=== PATIENT | female | born 1975 | race Caucasian/White ===

== ENCOUNTER 2017-10-20 10:56 | Observation (INO) ==
[2017-10-20] MEDS ORDERED: 0.9 % Sodium Chloride 1,000 ML IVC ONE (11:04)
[2017-10-20] MEDS ORDERED: Pantoprazole 40 MG VIAL IVP ONE (11:04)
[2017-10-20] MEDS ORDERED: Ondansetron 4 MG/2 ML VIAL IVP ONE (11:04)
--- NOTE | 2017-10-20 11:29 | Emergency Department Note ---
Disposition Clinical Impression: Near syncope Disposition: Still a Patient Referrals: Benjy Cowan MD [Primary Care Provider] - General Adult HPI - General Chief complaint: ED Syncope Stated complaint: near syncope Time Seen by Provider: 10/20/17 11:00 - History of Present Illness Pain Scale: 7 - Related Data Home Medications Medication Instructions Recorded Confirmed BuPROPion XL (24 HR) [Wellbutrin 150 mg PO DAILY 10/04/16 10/21/16 Xl] Cholecalciferol (D-3) [Vitamin D] 5,000 unit PO DAILY 10/04/16 10/21/16 Cyclosporine [Restasis] 1 drop OP BID 10/04/16 10/21/16 Diphenoxylate/Atropine [Lomotil 1 tab PO BID 10/04/16 10/21/16 2.5 mg/0.025 mg] Escitalopram [Lexapro] 20 mg PO DAILY 10/04/16 10/21/16 Ferrous Gluconate 240 mg PO DAILY 10/04/16 10/21/16 Fexofenadine HCl [Allergy Relief] 180 mg PO DAILY 10/04/16 10/21/16 L. Rhamnosus GG/Inulin [Culturelle 1 cap PO DAILY 10/04/16 10/21/16 Capsule] LORazepam [Ativan] 1 mg PO BID 10/04/16 10/21/16 Montelukast [Singulair] 10 mg PO DAILY 10/04/16 10/21/16 Omeprazole [PriLOSEC] 20 mg PO DAILY 10/04/16 10/21/16 Ondansetron HCl [Zofran] 4 - 8 mg PO Q8H PRN 10/04/16 10/21/16 Promethazine HCl 12.5 - 25 mg PO Q8H PRN 10/04/16 10/21/16 Ziprasidone HCl [Geodon] 20 mg PO BID 10/04/16 10/21/16 Previous Rx's Medication Instructions Recorded OxyCODONE/APAP 10/325 [Percocet 1 each PO Q6HR PRN #36 tablet 10/21/16 10/325 MG] Dicyclomine [Bentyl] 10 mg PO QID PRN #30 capsule 08/01/17 Sucralfate [Carafate] 1 gm PO QID 10 Days #1 bottle 08/28/17 Ondansetron ODT [Zofran ODT] 8 mg SL Q6HR PRN #40 tab.rapdis 10/16/17 Allergies Allergy/AdvReac Type Severity Reaction Status Date / Time Cyclobenzaprine AdvReac See Verified 10/16/17 00:08 Comments eszopiclone [From Lunesta] AdvReac See Verified 10/16/17 00:08 Comments mirtazapine AdvReac See Verified 10/16/17 00:08 Comments Zolpidem [From Ambien] AdvReac Hallucinati Verified 10/16/17 00:08 ng Past Medical History - Past Medical History Medical history: Reports: GERD, migraine Psychiatric history: Reports: anxiety, depression 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 CHIP BIN OPERATOR history - Social History Smoking Status: Never smoker Smokeless Tobacco Status: No Alcohol use: Reports: none Drug use: Reports: none Physical Exam - General General appearance: alert, in no apparent distress Course Vital Signs Temperature 97.6 F 10/20/17 10:58 Pulse Rate 82 10/20/17 10:58 Respiratory Rate 17 10/20/17 10:58 Blood Pressure 124/83 10/20/17 10:58 O2 Sat by Pulse Oximetry 100 10/20/17 10:58 Temperature 97.6 F 10/20/17 10:58 Pulse Rate 82 10/20/17 10:58 Respiratory Rate 17 10/20/17 10:58 Blood Pressure 124/83 10/20/17 10:58 O2 Sat by Pulse Oximetry 100 10/20/17 10:58 Oxygen Delivery Oxygen Delivery Room Air Attestation Statement - Attestation Attestation: I examined this patient and my medical decision-making was reviewed with the Resident Physician. I agree with the documented findings, disposition and treatment plan as described except to the extent set forth below. 42 year old lance prsnet to the ED with complaints of near syncope while showeirng and is currently being evlauted for chronic abminal pain per Dr. Miller. Mother at bedside has been demanding and states that she needs to be admitted per reccs of Dr. Miller. We will start IVf and obtain labs secondary to a history of hypokalemia in addiitiont to inabiltiyt to tolerate PO per patient. WE will also consutl with Dr. Miller before admission tot [facility]
--- NOTE | 2017-10-20 11:34 | Emergency Department Note ---
Disposition Clinical Impression: Near syncope, Weight loss, Hypokalemia Abdominal pain Qualifiers: Abdominal location: epigastric Qualified Code(s): R10.13 - Epigastric pain Intractable nausea and vomiting Qualifiers: Vomiting type: unspecified Qualified Code(s): R11.2 - Nausea with vomiting, unspecified Disposition: Admitted As Inpatient Condition: Fair Time of Disposition: 14:09 General Adult HPI - General Chief complaint: ED Syncope Stated complaint: near syncope Time Seen by Provider: 10/20/17 11:00 Source: EMS Nursing Notes Reviewed: Yes Vital Signs Reviewed: Yes - History of Present Illness HPI Narrative: Patient is a 42-year-old female who presents to [facility] ED with a chief complaint of near syncopal episode today and abdominal pain. Patient states she has had a 3 week history now of persistent abdominal pains that come on whenever she eats. She is to the point where she has lost 25 pounds over the last 3 weeks and has severe pain when she tries to eat or drink anything. States she is just down to drinking water. Everything else irritates her. She is unable to take any of her medications including Protonix or Carafate. Patient has been following with the welt insole channeler Dr. Miller who has her scheduled for picc line placement today and an EGD tomorrow. Onset (ago): week(s) (3) Location: abdomen Radiation: non-radiation Pain Severity: moderate Pain Scale: 7 Quality: aching Consistency: intermittent Improves with: nothing Worsens with: eating Associated symptoms: Reports: loss of appetite, nausea/vomiting, weakness. Denies: chest pain, fever/chills Treatments Prior to Arrival: none - Related Data Home Medications Medication Instructions Recorded Confirmed BuPROPion XL (24 HR) [Wellbutrin 150 mg PO DAILY 10/04/16 10/21/16 Xl] Cholecalciferol (D-3) [Vitamin D] 5,000 unit PO DAILY 10/04/16 10/21/16 Cyclosporine [Restasis] 1 drop OP BID 10/04/16 10/21/16 Escitalopram [Lexapro] 20 mg PO DAILY 10/04/16 10/21/16 Ferrous Gluconate 240 mg PO DAILY 10/04/16 10/21/16 Fexofenadine HCl [Allergy Relief] 180 mg PO DAILY 10/04/16 10/21/16 L. Rhamnosus GG/Inulin [Culturelle 1 cap PO DAILY 10/04/16 10/21/16 Capsule] LORazepam [Ativan] 1 mg PO BID 10/04/16 10/21/16 Montelukast [Singulair] 10 mg PO DAILY 10/04/16 10/21/16 Omeprazole [PriLOSEC] 20 mg PO DAILY 10/04/16 10/21/16 Ziprasidone HCl [Geodon] 20 mg PO BID 10/04/16 10/21/16 Buspirone HCl [Buspar] 15 mg PO BID 10/20/17 10/20/17 Potassium Chloride [K-Tab ER] 10 meq PO BID 10/20/17 10/20/17 SUMAtriptan Succinate [Imitrex] 6 mg SQ DAILY PRN 10/20/17 10/20/17 Previous Rx's Medication Instructions Recorded Dicyclomine [Bentyl] 10 mg PO QID PRN #30 capsule 08/01/17 Sucralfate [Carafate] 1 gm PO QID 10 Days #1 bottle 08/28/17 Ondansetron ODT [Zofran ODT] 8 mg SL Q6HR PRN #40 tab.rapdis 10/16/17 Allergies Allergy/AdvReac Type Severity Reaction Status Date / Time Cyclobenzaprine AdvReac See Verified 10/20/17 13:41 Comments eszopiclone [From Lunesta] AdvReac See Verified 10/20/17 13:41 Comments mirtazapine AdvReac See Verified 10/20/17 13:41 Comments Zolpidem [From Ambien] AdvReac Hallucinati Verified 10/20/17 13:41 ng All systems ED: reviewed and negative except as stated. Past Medical History - Past Medical History Attestation: Yes The following information was validated with the patient. Source: patient Medical history: Reports: GERD, migraine Psychiatric history: Reports: anxiety, depression COMMISSIONER OF CONCILIATION history: Reports: no COMMISSIONER OF CONCILIATION history - Social History Smoking Status: Never smoker Smokeless Tobacco Status: No Alcohol use: Reports: none Drug use: Reports: none Physical Exam - General Limitations: no limitations General appearance: alert, in no apparent distress - Head Head exam: atraumatic, normocephalic, normal inspection - Eye Eye exam: Present: normal appearance - ENT ENT exam: normal exam - Neck Neck exam: Present: normal inspection - Chest Chest inspection: Present: normal inspection, symmetric chest wall rise - Respiratory Respiratory exam: Present: normal lung sounds bilaterally - Cardiovascular Cardiovascular exam: Present: regular rate, normal rhythm, normal heart sounds - Abdominal Exam Abdominal exam: Present: soft, tenderness, normal bowel sounds Abdominal tenderness: Present: epigastrium, moderate - Extremities Exam Extremities exam: Present: normal inspection, full ROM. Absent: tenderness, pedal edema - Back Exam Back exam: Present: normal inspection, full ROM. Absent: tenderness - Neurological Exam Neurological exam: Present: alert, oriented X3 - Psychiatric Psychiatric exam: Present: normal affect, normal mood - Skin Skin exam: Present: warm, dry, intact, normal color Course Course Narrative: Patient seen and examined. Persistent intermittent abdominal pain especially with eating. She has been evaluated by gastroenterology. Patient and family report 25 pound weight loss over the last 3 weeks. Abdominal labs ordered. We will hold off on CT scanning since she just had this done a few days ago. We will touch base with gastroenterology within results are back. - Reevaluation(s) Reevaluation #1: Labwork shows mild hypokalemia with a potassium of 3.2. Patient has been unable to tolerate oral pills of any sort. We will give her IV fluids and 40 mEq of IV potassium. I discussed with Dr. Miller who recommends that the patient be admitted for further workup at this time. States she may need a CT of the head to rule out any PROPAGATION MANAGER causes of her symptoms. I discussed with hospitalist who has accepted patient for admission. She recommends getting a magnesium level as well as having her on maintenance IV fluids normal saline at 150 mL per hour. Time: 14:06 Vital Signs Temperature 97.6 F 10/20/17 10:58 Pulse Rate 82 10/20/17 10:58 Respiratory Rate 17 10/20/17 10:58 Blood Pressure 124/83 10/20/17 10:58 O2 Sat by Pulse Oximetry 100 10/20/17 10:58 Temperature 97.6 F 10/20/17 10:58 Pulse Rate 92 10/20/17 12:54 Respiratory Rate 14 10/20/17 12:54 Blood Pressure 126/82 10/20/17 12:54 O2 Sat by Pulse Oximetry 100 10/20/17 12:54 Oxygen Delivery Oxygen Delivery Room Air Medical Decision Making - Medical Records Medical records reviewed: Yes I reviewed the patient's medical records. - Lab Data Lab results reviewed: Yes I reviewed the patient's lab results. Result diagrams: 10/20/17 11:27 10/20/17 11:27 Lab Results 10/20/17 10/20/17 10/20/17 Range/Units 11:27 11:27 12:40 WBC 8.9 (4.3-11.1) K/mcL RBC 5.29 H (3.82-4.97) M/mcL Hgb 16.0 H (11.5-15.4) g/dL Hct 44.5 (35.3-44.9) % MCV 84.1 (83.0-100.0) fL MCH 30.2 (28.0-33.3) pg MCHC 36.0 H (31.6-35.5) g/dL RDW 13.1 (11.5-14.5) % Plt Count 356 (140-400) K/mcL MPV 9.4 (9.4-12.4) fL Immature Gran % 0.4 (0-4) % Seg Neutrophils % 74.7 % Lymphocytes % 14.4 % Monocytes % 8.6 % Eosinophils % 1.7 % Basophils % 0.2 % Neutrophils # 6.7 (1.6-8.9) K/mcL Lymphocytes # 1.3 (0.6-4.6) K/mcL Monocytes # 0.8 (0.0-1.3) K/mcL Eosinophils # 0.2 (0.0-0.6) K/mcL Basophils # 0.0 (0.0-0.2) K/mcL Sodium 140 (136-145) mEq/L Potassium 3.2 L (3.5-5.1) mEq/L Chloride 103 (98-107) mEq/L Carbon Dioxide 17 L (23-29) mEq/L BUN 6 (6-20) mg/dL Creatinine 0.84 (0.60-1.20) mg/dL Est GFR ( Amer) > 60 (> 60) Est GFR (Non-Af Amer) > 60 (> 60) BUN/Creatinine Ratio 7 (6-26) Glucose 78 (70-105) mg/dL Calculated Osmolality 286 (280-300) Calcium 9.6 (8.6-10.3) mg/dL Magnesium 2.1 (1.6-2.6) mg/dL Total Bilirubin 0.5 (0.3-1.0) mg/dL Direct Bilirubin 0.1 (0.0-0.2) mg/dL Indirect Bilirubin 0.4 (0.0-1.2) mg/dL AST 21 (13-39) Units/L ALT 20 (7-52) Units/L Alkaline Phosphatase 72 (34-104) Units/L Serum Total Protein 7.5 (6.4-8.9) g/dL Albumin 4.6 (3.5-5.7) g/dL Globulin 2.9 (2.4-3.5) g/dL Albumin/Globulin Ratio 1.6 (1.1-2.2) Lipase 87 H (11-82) Units/L Urine Color Yellow (Yellow) Urine Clarity Clear (Clear) Urine pH 5.5 (5.0-8.0) pH Units Ur Specific [place] 1.012 (1.010-1.025) Urine Protein Negative (Neg-Trace) mg/dL Urine Glucose (UA) Normal (Normal) mg/dL Urine Ketones 80 H (Negative) mg/dL Urine Blood Small H (Negative) Urine Nitrite Negative (Negative) Urine Bilirubin Negative (Negative) Urine Urobilinogen Normal (Normal) mg/dL Ur Leukocyte Esterase Negative (Negative) Urine Microscopic RBC 0-3 (0-3) per hpf Urine Microscopic WBC 3-5 H (0-3) per hpf Ur Squamous Epith Cells Many H (None-Few) per lpf Urine Bacteria Few (None-Few) per hpf Hyaline Casts None Seen (None-Few) per lpf Ur Culture Indicated? NO (NO) - Radiology Data Radiology results reviewed: Yes I reviewed the patient's radiology results.
[2017-10-20 11:44] LABS: Basophils % 0.2 %; Eosinophils # 0.2 K/mcL (0.0-0.6); Eosinophils % 1.7 %; Hematocrit 44.5 % (35.3-44.9); Immature Granulocytes % 0.4 % (0-4); Lymphocytes # 1.3 K/mcL (0.6-4.6); Lymphocytes % 14.4 %; Mean Corpuscular Hemoglobin 30.2 pg (28.0-33.3); Mean Corpuscular Volume 84.1 fL (83.0-100.0); Mean Platelet Volume 9.4 fL (9.4-12.4); Monocytes # 0.8 K/mcL (0.0-1.3); Monocytes % 8.6 %; Neutrophils # 6.7 K/mcL (1.6-8.9); Platelet Count 356 K/mcL (140-400); Red Blood Count 5.29 M/mcL (3.82-4.97); Red Cell Distribution Width 13.1 % (11.5-14.5); Segmented Neutrophils % 74.7 %
[2017-10-20 11:59] LABS: Alanine Aminotransferase 20 Units/L (7-52); Albumin 4.6 g/dL (3.5-5.7); Albumin/Globulin Ratio 1.6 (1.1-2.2); Alkaline Phosphatase 72 Units/L (34-104); Aspartate Amino Transferase 21 Units/L (13-39); BUN/Creatinine Ratio 7 (6-26); Bilirubin,Direct 0.1 mg/dL (0.0-0.2); Bilirubin,Indirect 0.4 mg/dL (0.0-1.2); Bilirubin,Total 0.5 mg/dL (0.3-1.0); Blood Urea Nitrogen 6 mg/dL (6-20); Calcium 9.6 mg/dL (8.6-10.3); Carbon Dioxide 17 mEq/L (23-29); Chloride 103 mEq/L (98-107); Globulin 2.9 g/dL (2.4-3.5); Glucose 78 mg/dL (70-105); Lipase 87 Units/L (11-82); Osmolality,Calculated 286 (280-300); Potassium 3.2 mEq/L (3.5-5.1); Sodium 140 mEq/L (136-145); Total Protein 7.5 g/dL (6.4-8.9); eGFR For African Americans > 60 (> 60); eGFR For Non-African Americans > 60 (> 60)
[2017-10-20 12:54] LABS: Bilirubin,Urine Negative (Negative); Blood,Urine Small (Negative); Clarity,Urine Clear (Clear); Color,Urine Yellow (Yellow); Glucose,Urine (UA) Normal (Normal); Ketones,Urine 80 mg/dL (Negative); Leukocyte Esterase,Urine Negative (Negative); Nitrite,Urine Negative (Negative); PH,Urine 5.5 pH Units (5.0-8.0); Protein,Urine Negative (Neg-Trace); Specific Gravity,Urine 1.012 (1.010-1.025); Urobilinogen,Urine Normal (Normal)
[2017-10-20 12:56] LABS: Bacteria,Urine Few per hpf (None-Few); Hyaline Casts,Urine None Seen per lpf (None-Few); RBC,Urine 0-3 per hpf (0-3); Squamous Epithelial Cell,Urine Many per lpf (None-Few)
[2017-10-20 13:28] LABS: Magnesium 2.1 mg/dL (1.6-2.6)
[2017-10-20] MEDS ORDERED: Naloxone 0.4 MG/ML INJ IVP PRN (14:42)
[2017-10-20] MEDS: 0.9 % Sodium Chloride 1,000 ML IVC SCH ×2 (14:43→21:33)
--- NOTE | 2017-10-20 14:52 | Internal Med History&Physical ---
Date of Encounter: 10/20/17 Time of Encounter: 14:49 Internal Medicine - H&P: HPI Chief complaint: Near syncope Admitted From: Home Plans for Post Hospital Care: Home History of present illness: Ms. Briggs is a 42 year old female that came to the ED after almost falling in the shower. The patient has a very extensive history of illness that began last March. She has a hx of IBS, vitamin D deficiency, and hypokalemia. The patient indicated that she had her gallbladder removed about 1 year ago and then around March she began to have symptoms involving IBS and nausea. She indicated that Dr. Miller placed her on omeprazole abdomen carafate. The patient stated that about 3 months ago she began to have nausea and vomiting that has caused her to essentially lose 25 pounds and have inadequate nutrition and dehydration. The patient currently states that she was told that an picc line would be placed soon for IV hydration since she is not able to take adequate intake. The patient is hoping to have parenteral nutrition. She indicated that the medications for her nausea and vomiting has been ineffective at home. She is scheduled to have EGD in am and GI is consulted for that while inpatient. She has had several visits to the ED and her abdomen was scanned on Tuesday. The scan showed a 2 mm left kidney that was non-obstructing and w/o hydronephrosis. The patient has mental health history and indicated that she stopped taking most of her psych meds on September 28, as a result of her n+V. She indicated that she does not want any of her home medications that are po right now. . Today the patient almost fell while in the shower and came in for hydration and she stated for Dr. Miller to perform EGD in am. Lipase is 87, k was 3.2 and replaced by the ED. Past Med Surg Social Fam HX - Past Medical History Medical history: GERD, migraine Psychiatric history: anxiety, depression - Social History Smoking Status: Never smoker Smokeless Tobacco Status: No Alcohol use: none Drug use: none - Family History Grandfather Living Status: Hx Family Cardiac Disorders: Yes Internal Medicine - H&P: Meds BuPROPion XL (24 HR) [Wellbutrin Xl] 150 mg PO DAILY 10/04/16 [History] Cholecalciferol (D-3) [Vitamin D] 5,000 unit PO DAILY 10/04/16 [History] Cyclosporine [Restasis] 1 drop OP BID 10/04/16 [History] Escitalopram [Lexapro] 20 mg PO DAILY 10/04/16 [History] Ferrous Gluconate 240 mg PO DAILY 10/04/16 [History] Fexofenadine HCl [Allergy Relief] 180 mg PO DAILY 10/04/16 [History] L. Rhamnosus GG/Inulin [Culturelle Capsule] 1 cap PO DAILY 10/04/16 [History] LORazepam [Ativan] 1 mg PO BID 10/04/16 [History] Montelukast [Singulair] 10 mg PO DAILY 10/04/16 [History] Omeprazole [PriLOSEC] 20 mg PO DAILY 10/04/16 [History] Ziprasidone HCl [Geodon] 20 mg PO BID 10/04/16 [History] Dicyclomine [Bentyl] 10 mg PO QID PRN #30 capsule 08/01/17 [Rx] Sucralfate [Carafate] 1 gm PO QID 10 Days #1 bottle 08/28/17 [Rx] Ondansetron ODT [Zofran ODT] 8 mg SL Q6HR PRN #40 tab.rapdis 10/16/17 [Rx] Buspirone HCl [Buspar] 15 mg PO BID 10/20/17 [History] Potassium Chloride [K-Tab ER] 10 meq PO BID 10/20/17 [History] SUMAtriptan Succinate [Imitrex] 6 mg SQ DAILY PRN 10/20/17 [History] 3 Allergy/AdvReac Type Severity Reaction Status Date / Time Cyclobenzaprine AdvReac See Verified 10/20/17 13:41 Comments eszopiclone [From Lunesta] AdvReac See Verified 10/20/17 13:41 Comments mirtazapine AdvReac See Verified 10/20/17 13:41 Comments Zolpidem [From Ambien] AdvReac Hallucinati Verified 10/20/17 13:41 ng All Systems PM: A 10-system review of systems was performed and is negative for pertinent findings except as documented above in the HPI. - Constitutional Constitutional: weight loss (Severe 25 pounds) - EENT Eyes: no change in vision, no discharge, no pain, no photophobia Ears: no ear discharge, no ear pain, no tinnitus Nose, mouth and throat: no dysphagia, no nasal discharge, no neck pain, no sore throat - Cardiovascular Cardiovascular ROS IM: lightheadedness, syncope, no chest pain, no diaphoresis, no dyspnea, no palpitations - Respiratory Respiratory: no cough, no dyspnea, no wheezing, no excessive phlegm production - Gastrointestinal Gastrointestinal: abdominal pain, change in bowel habits, diarrhea, loose stools , nausea, vomiting, no hematemesis, no hematochezia, no melena - Genitourinary Genitourinary: no change in urinary stream, no dysuria, no flank pain, no hematuria - Musculoskeletal Musculoskeletal ROS IM: no numbness, no tingling - Integumentary Integumentary IM: no rash, no unusual bruising - Neurological Neurological ROS: no confusion, no convulsions, no focal weakness, no numbness, no tingling, no tremor(s) - Psychiatric Psychiatric: anxiety (Patient indicated that she ) - Hematologic/Lymphatic Hematologic/Lymphatic: no easy bruising - Constitutional Vitals: Temp Pulse Resp BP Pulse Ox 97.8 F 82 14 132/81 98 10/20/17 14:40 10/20/17 14:40 10/20/17 14:40 10/20/17 14:40 10/20/17 14:40 General appearance: Present: mild distress, A&O X 3, loss of weight, answers questions appropriately - Head Head exam: Present: atraumatic, normocephalic - Eye Eye exam: Present: PERRL, conjuntiva pink, sclera anicteric Pupils: Present: PERRL - Neck Neck exam general surgery: Present: supple, trachea midline. Absent: lymphadenopathy - Respiratory Respiratory exam: Present: CTAB. Absent: accessory muscle use, rales, rhonchi, wheezes - Cardiovascular Cardiovascular exam: Present: RRR, +S1, +S2. Absent: diastolic murmur, gallop, rubs, systolic murmur - GI/Abdominal GI/Abdominal exam: Present: normal bowel sounds, soft, no peritoneal signs. Absent: distended, tenderness - Extremities Exam Extremities exam: Present: warm, radial pulses palpable and symmetrical. Absent : calf tenderness, cyanotic, pedal edema - Neurological Exam Neurological exam: Present: CN II-XII intact, oriented X3, no focal deficits. Absent: pronater drift, facial droop, speech deficit - Skin Skin exam: Present: dry, intact Internal Med - H&P Results - Labs CBC & Chem 7: 10/20/17 11:27 10/20/17 11:27 - Assessment and plan (1) Near syncope Current Visit: Yes Status: Acute Assessment and plan: Will get orthostatic Bp's, IVF's, and cardiac monitoring (2) Intractable nausea and vomiting Current Visit: Yes Status: Acute Assessment and plan: Patient requested to have med other than zofran for nausea, states ineffective. Started on phenergan iv prn. Will keep hydrated with IVF's. Qualifiers: Vomiting type: unspecified Qualified Code(s): R11.2 - Nausea with vomiting , unspecified (3) Abdominal pain Current Visit: Yes Status: Acute Assessment and plan: Patient here per GI request. Scheduled to have EGD in am. Patient will be npo after midnight for procedure. Qualifiers: Abdominal location: generalized Qualified Code(s): R10.84 - Generalized abdominal pain (4) Hypokalemia Current Visit: Yes Status: Acute Assessment and plan: Monitor serum potassium daily. Continue IVF's. Cardiac monitoring (5) Weight loss Current Visit: Yes Status: Acute Assessment and plan: Will consult nutrition regarding weightloss. Patient requesting parenteral nutrition. Pheneragn iv prn or nausea. - Time Spent With Patient Total time spent is greater than 50% in coordination of care (as documented) at patient's floor/unit and/or counseling patient:
[2017-10-20] MEDS: *HR* Promethazine 25 MG/ML VIAL IVP PRN (17:35)
[2017-10-21] MEDS: 0.9 % Sodium Chloride 1,000 ML IVC SCH (04:39)
[2017-10-21 05:47] LABS: Mean Corpuscular HGB Conc 35.5 g/dL (31.6-35.5); Mean Corpuscular Volume 84.4 fL (83.0-100.0); Mean Platelet Volume 9.4 fL (9.4-12.4); Platelet Count 306 K/mcL (140-400); Red Cell Distribution Width 13.2 % (11.5-14.5)
[2017-10-21 06:04] LABS: Hemoglobin 13.5 g/dL (11.5-15.4)
[2017-10-21 06:07] LABS: BUN/Creatinine Ratio 5 (6-26); Blood Urea Nitrogen 3 mg/dL (6-20); Calcium 8.3 mg/dL (8.6-10.3); Carbon Dioxide 15 mEq/L (23-29); Chloride 113 mEq/L (98-107); Glucose 61 mg/dL (70-105); Magnesium 1.7 mg/dL (1.6-2.6); Osmolality,Calculated 284 (280-300); Potassium 3.1 mEq/L (3.5-5.1); Sodium 140 mEq/L (136-145); eGFR For African Americans > 60 (> 60); eGFR For Non-African Americans > 60 (> 60)
[2017-10-21] MEDS ORDERED: *HR* Propofol 200 MG/20 ML VIAL IVP ONE ×2 (07:56→08:08)
--- NOTE | 2017-10-21 08:25 | Anesthesia Evaluation PreOp ---
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 Rhamnosus GG/Inulin [Culturelle Capsule] 1 cap PO DAILY 10/04/16 [History] LORazepam [Ativan] 1 mg PO BID 10/04/16 [History] Montelukast [Singulair] 10 mg PO DAILY 10/04/16 [History] Omeprazole [PriLOSEC] 20 mg PO DAILY 10/04/16 [History] Ziprasidone HCl [Geodon] 20 mg PO BID 10/04/16 [History] Dicyclomine [Bentyl] 10 mg PO QID PRN #30 capsule 08/01/17 [Rx] Sucralfate [Carafate] 1 gm PO QID 10 Days #1 bottle 08/28/17 [Rx] Ondansetron ODT [Zofran ODT] 8 mg SL Q6HR PRN #40 tab.rapdis 10/16/17 [Rx] Buspirone HCl [Buspar] 15 mg PO BID 10/20/17 [History] Potassium Chloride [K-Tab ER] 10 meq PO BID 10/20/17 [History] SUMAtriptan Succinate [Imitrex] 6 mg SQ DAILY PRN 10/20/17 [History] 3 Allergy/AdvReac Type Severity Reaction Status Date / Time Cyclobenzaprine AdvReac See Verified 10/20/17 13:41 Comments eszopiclone [From Lunesta] AdvReac See Verified 10/20/17 13:41 Comments mirtazapine AdvReac See Verified 10/20/17 13:41 Comments Zolpidem [From Ambien] AdvReac Hallucinati Verified 10/20/17 13:41 ng - Meds/Allergy Pre-op Review Medications Reviewed: Yes Allergies Reviewed: Yes Beta Blockers on Current Med List: No Anesthesia Results - Labs 10/21/17 05:23 10/21/17 05:23 Anesthesia Exam Selected Entries 10/21/17 07:40 Temperature 98.5 F Pulse Rate 72 Respiratory Rate 16 Blood Pressure 138/86 O2 Sat by Pulse Oximetry 100 Weight: 75.5kg NPO (# of Hours): 8 - HEENT Pupil (Motor): EOMI Mallampati: II Teeth: Normal Oral Opening: Greater than 3 - BUTTONHOLE MAKER HAND LOC: Oriented BUTTONHOLE MAKER HAND Motor: Normal RUE, Normal LUE, Normal RLE, Normal LLE, Normal Face BUTTONHOLE MAKER HAND Sensory: Normal: RUE, LUE, RLE, LLE, Face - Cardiac Rhythm: Regular Murmur: None - Pulmonary Breath Sounds: bilateral Clear Respiratory Effort: Symmetrical Anesthesia Assess/Plan ASA Score: 2 Modified Donna Scale for Level of Consciousness: Cooperative, oriented, and tranquil Anesthetic Plan: MAC Monitoring Plan: Standard Monitors Recovery Plan: Other (agrees to MAC)
--- NOTE | 2017-10-21 09:26 | Anesthesia Evaluation Post Op ---
Date of Encounter: 10/21/17 Time of Encounter: 09:25 - Vital Signs Vital Signs: BP 112/76 P 80 r 14 spo2 100 - Lungs Lungs: Clear Ascult./Percussion - Airway Airway: Non-obstructed - Cardiovascular Regular Rate - Mental Status Mental Status: Alert & Oriented, Answers Appropriately - Pain Pain Scale: 0 Pain Scale used: Numeric (1 - 10) - Nausea Vomiting Nausea Vomiting: Not Present - Hydration Hydration: NPO, Has not voided - Discharge PostOp Status: Transfer Patient to floor
--- NOTE | 2017-10-21 09:29 | Gastroenterology Consult Note ---
<Anne Hale - Last Filed: 10/21/17 10:05> Date of Encounter: 10/21/17 Time of Encounter: 09:45 - Assessment and plan (1) Intractable nausea and vomiting Status: Acute Assessment and plan: Pt has longstanding history of nausea and vomiting. EGD 10/[address] abdomen was negative. She has serum cortisol level drawn as an outpatient. Will proceed with EGD today. She needs MRI brain to rule out mass lesion as the cause for persistant nausea. Qualifiers: Vomiting type: unspecified Qualified Code(s): R11.2 - Nausea with vomiting , unspecified (2) Abdominal pain Status: Acute Assessment and plan: EGD today, CT was normal has been treated with PPI and carafate. Qualifiers: Abdominal location: generalized Qualified Code(s): R10.84 - Generalized abdominal pain (3) Weight loss Status: Acute Assessment and plan: Pt to have PICc line inserted and started on parenteral nutrition. - Time Spent With Patient Total time spent is greater than 50% in coordination of care (as documented) at patient's floor/unit and/or counseling patient: GI History of Present Illness - Data of Consult Patient: known to practice within the last 3 years Consult date: 10/21/17 Requesting Physician: Jackeline Camejo - Consult Narrative Reason for consult: intractable nausea and vomiting History of present illness: Ms. Briggs is a 42 year old female that came to the ED after almost falling in the shower. The has had nausea and vomiting since March 2017 following cholecystectomy. She has a hx of IBS, vitamin D deficiency, and hypokalemia. She was started on omeprazole and carafate as well as zofran and phenergan for nausea. She had recent hypokalemia on outpatient labs and was sent po replacement but was unable to take due to nausea and diarrhea. She has been seen in the ER multiple times since August 2017. She also has lost 22 pounds in the past [address] abdomen showed a 2 mm left kidney stone that was non- obstructing and w/o hydronephrosis. The patient has mental health history and indicated that she stopped taking most of her psych meds on September 28, as a result of her n+V. She indicated that she does not want any of her home medications that are po right now. Dr Miller had ordered for the patient to have a picc line placed for parenteral nutrition yesterday but she had a near syncopal episode in the shower and presented to the ER.Lipase is 87, k was 3.2 and replaced by the ED EGD/colonoscopy 10/04/16- gastritis. NSAIDS: none Past Med Surg Social Fam HX - Past Medical History Medical history: GERD, migraine Psychiatric history: anxiety, depression - Past Surgical History Surgical History: cholecystectomy - Social History Smoking Status: Never smoker Smokeless Tobacco Status: No Alcohol use: none Drug use: none - Family History Grandfather Living Status: Hx Family Cardiac Disorders: Yes Review of Systems: GI: as per [facility]: denies fever, has some chills EYES: denies yellow discoloration ENT: denies pain with swallowing or difficulty swallowing CARDIO: denies chest pain, palpitations RESP: No Shortness of breath with exertion : denies change in color of urine NEURO: weakness HEME: Denies any bruising MS: denies joint pain, joint swelling or back pain. DERM: denies rash or itching PSYCH: history of anxiety and depression - Constitutional Vitals: Temp Pulse Resp BP Pulse Ox 98.5 F 72 16 138/86 100 10/21/17 07:40 10/21/17 07:40 10/21/17 07:40 10/21/17 07:40 10/21/17 07:40 Exam: CONSTITUTIONAL:~alert, no acute distress.~HEAD:~normocephalic.~EYES:~no jaundice.~NECK:~no obvious swelling.~HEART:~regular rate and rhythm, no murmurs. ~LUNGS:~bilateral good air entry.~ABDOMEN:~non distended, soft, diffusely tender , no masses pulpable, no organomegaly.~RECTAL EXAM:~Deferred.~EXTREMITIES:~no clubbing, cyanosis or edema.~SKIN:~pallor noted, no stigmata of chronic liver disease.~NEUROLOGIC:~no obvious focal defect.~~~~ Results - Labs CBC & Chem 7: 10/21/17 05:23 10/21/17 05:23 Labs: Last Result Calcium 8.3 mg/dL (8.6-10.3) L 10/21/17 05:23 Entire Visit Hgb 13.5 g/dL (11.5-15.4) D 10/21/17 05:23 Hct 38.0 % (35.3-44.9) 10/21/17 05:23 Total Bilirubin 0.5 mg/dL (0.3-1.0) 10/20/17 11:27 AST 21 Units/L (13-39) 10/20/17 11:27 ALT 20 Units/L (7-52) 10/20/17 11:27 Lipase 87 Units/L (11-82) H 10/20/17 11:27 Consult Discharge Plan - Plan Instructions: Acute Nausea and Vomiting (DC), Acute Abdominal Pain (DC) Referrals: Benjy Cowan MD [Primary Care Provider] - (please make a follow up appt.) <Nathan Miller - Last Filed: 10/22/17 12:36> Date of Encounter: 10/21/17 Time of Encounter: 08:00 - Time Spent With Patient Total time spent is greater than 50% in coordination of care (as documented) at patient's floor/unit and/or counseling patient: GI History of Present Illness - Data of Consult Requesting Physician: Jackeline Camejo - Consult Narrative History of present illness: Ms. Briggs is a 42 year old female - Constitutional Vitals: Temp Pulse Resp BP Pulse Ox 97.9 F 77 16 119/82 99 10/21/17 11:25 10/21/17 11:25 10/21/17 11:25 10/21/17 11:25 10/21/17 11:25 Results - Labs CBC & Chem 7: 10/21/17 05:23 10/21/17 05:23 Labs: Last Result Calcium 8.3 mg/dL (8.6-10.3) L 10/21/17 05:23 Entire Visit Hgb 13.5 g/dL (11.5-15.4) D 10/21/17 05:23 Hct 38.0 % (35.3-44.9) 10/21/17 05:23 Total Bilirubin 0.5 mg/dL (0.3-1.0) 10/20/17 11:27 AST 21 Units/L (13-39) 10/20/17 11:27 ALT 20 Units/L (7-52) 10/20/17 11:27 Lipase 87 Units/L (11-82) H 10/20/17 11:27 - Impressions Impressions Brain MRI 10/21/17 09:31 IMPRESSION: Normal MRI of the brain. D/ / 10/21/2017 14:00:59 Alvin Devries MD / gavino Interpreting Provider: Alvin Devries MD - Attending Attestation I have personally performed a face to face evaluation on this patient. I have reviewed and agree with the care plan. History and Exam by me shows: Pt seen. Pt with intractable NV. So far extensive w/u negative. Could be meds induced. Rec: EGD today and if negative then MRI of head
[2017-10-21] MEDS ORDERED: Gadolinium Contrast Agent (WT Based) IV PRN (09:31)
[2017-10-21] MEDS ORDERED: Potassium Chloride 40 MEQ, Lidocaine 1% 2 ML in D5% in Water 500 ML IVPB ONE (09:46)
[2017-10-21] MEDS ORDERED: 0.9 % Sodium Chloride 1,000 ML IVC SCH (09:46)
[2017-10-21] MEDS ORDERED: D10% in Water 500 ML IVC PRN ×2 (10:28→10:41)
[2017-10-21] MEDS: *HR* Promethazine 25 MG/ML VIAL IVP PRN (10:30)
[2017-10-21 11:06] LABS: Phosphorous 2.1 mg/dL (2.7-4.5)
[2017-10-21 11:26] VITALS: BP 119/82
--- NOTE | 2017-10-21 11:51 | Discharge Summary ---
Orders not resulted at time of discharge: Pending orders 10/21/17 09:19 Surgical Pathology [PTH] Routine 10/21/17 09:31 MR head/brain wo/w con [MR] Stat 10/22/17 04:00 Basic Metabolic Panel AM 0400 Complete Blood Count w/o Diff [HEME] AM 0400 Magnesium AM 0400 Phosphorous AM 0400 Potassium AM 0400 Prealbumin AM 0400 Triglycerides AM 0400 10/23/17 04:00 Basic Metabolic Panel AM 0400 Complete Blood Count w/o Diff [HEME] AM 0400 Magnesium AM 0400 Phosphorous AM 0400 10/24/17 04:00 Magnesium AM 0400 Phosphorous AM 0400 Date of Encounter: 10/21/17 Time of Encounter: 11:47 - Discharge Diagnosis (1) Abdominal pain Priority: Primary Status: Acute Qualifiers: Abdominal location: generalized Qualified Code(s): R10.84 - Generalized abdominal pain (2) Intractable nausea and vomiting Priority: Primary Status: Acute Qualifiers: Vomiting type: unspecified Qualified Code(s): R11.2 - Nausea with vomiting , unspecified (3) Near syncope Priority: Primary Status: Acute (4) Weight loss Priority: Primary Status: Acute Hospital course: Ms. Briggs is a 42 year old female with PMH IBS, vitamin D deficiency and hypokalemia presented to [facility] on 10/20/2017 after a near syncopal episode. She was placed in observation status for further workup and treatment. Patient reported feeling lightheaded and dizzy as if she was on a pass out while standing in the shower day of arrival. She called for her mom helped her to the floor. No loss of consciousness. Patient indicated that she was to have a PICC line placed for TPN day of arrival for persistent abdominal pain, nausea, vomiting and loose stool. Patient reported having gallbladder removed 10/2016 and had done well until March 2017 when she started experiencing increased nausea after eating, abdominal pain and loose stool. Patient reported at least one week per month when symptoms were so severe severe she had to miss work. She now reports persistent nausea, vomiting, diarrhea and abdominal pain for last 3 weeks. She is only able to tolerate water. She underwent an EGD which showed normal esophagus, normal duodenum ( biopsies taken, path pending). Patient and family wish to establish care in [place] which is closer to the patient's mother/father for second GI opinion. Regarding her near syncope this is likely secondary to vasovagal syncope/dehydration. No near syncope recurrence while inpatient. Patient was discharged in stable condition in the care of her mother and father with plans to take her to [facility] in [place]. Discharge discussed with: patient (Seen and examined at bedside. Patient is new to me, information obtained from chart review and patient report. Still with persistent abdominal pain, nausea vomiting and loose stool. She just came from EGD. Mother and father at bedside and mother and patient voiced frustration over not having colonoscopy mother states that she had a long discussion with Dr. alex who stated he was not going to be doing a colonoscopy. Patient and mother are requesting transfer to [facility]. Discussed case with social media intern who advised transportation would be quite costly and there would need to be an accepting physician. Patient and mother updated and decision made to discharge patient with private transfer. Mother states she will take patient to the ER [place].), family - Time Spent with Patient Total time spent providing and/or coordinating discharge services: - Discharge Medications Home Medications: BuPROPion XL (24 HR) [Wellbutrin Xl] 150 mg PO DAILY 10/04/16 [History] Cholecalciferol (D-3) [Vitamin D] 5,000 unit PO DAILY 10/04/16 [History] Cyclosporine [Restasis] 1 drop OP BID 10/04/16 [History] Escitalopram [Lexapro] 20 mg PO DAILY 10/04/16 [History] Ferrous Gluconate 240 mg PO DAILY 10/04/16 [History] Fexofenadine HCl [Allergy Relief] 180 mg PO DAILY 10/04/16 [History] L. Rhamnosus GG/Inulin [Culturelle Capsule] 1 cap PO DAILY 10/04/16 [History] LORazepam [Ativan] 1 mg PO BID 10/04/16 [History] Montelukast [Singulair] 10 mg PO DAILY 10/04/16 [History] Omeprazole [PriLOSEC] 20 mg PO DAILY 10/04/16 [History] Ziprasidone HCl [Geodon] 20 mg PO BID 10/04/16 [History] Dicyclomine [Bentyl] 10 mg PO QID PRN #30 capsule 08/01/17 [Rx] Sucralfate [Carafate] 1 gm PO QID 10 Days #1 bottle 08/28/17 [Rx] Ondansetron ODT [Zofran ODT] 8 mg SL Q6HR PRN #40 tab.rapdis 10/16/17 [Rx] Buspirone HCl [Buspar] 15 mg PO BID 10/20/17 [History] Potassium Chloride [K-Tab ER] 10 meq PO BID 10/20/17 [History] SUMAtriptan Succinate [Imitrex] 6 mg SQ DAILY PRN 10/20/17 [History] Allergies/Adverse Reactions: 3 Allergy/AdvReac Type Severity Reaction Status Date / Time Cyclobenzaprine AdvReac See Verified 10/20/17 13:41 Comments eszopiclone [From Lunesta] AdvReac See Verified 10/20/17 13:41 Comments mirtazapine AdvReac See Verified 10/20/17 13:41 Comments Zolpidem [From Ambien] AdvReac Hallucinati Verified 10/20/17 13:41 ng Date of admission: 10/20/17 13:41 Primary care physician: Benjy Cowan MD Consults: 10/20/17 15:34 Consult to Nutrition [CONS] Routine Comment: Consulting Provider: NUTRITION Reason for Dietary Consult: Diet Education TPN Start and Manage 10/21/17 09:44 Consult to Invasive Line Access Team [CONS] Routine Reason for Consult: TPN Line Type: PICC Discharging clinician: Abby Brush Anticipated date of discharge: 10/21/17 - Constitutional Vitals: Temp Pulse Resp BP Pulse Ox 97.9 F 77 16 119/82 99 10/21/17 11:25 10/21/17 11:25 10/21/17 11:25 10/21/17 11:25 10/21/17 11:25 General appearance: Present: A&O X 3, pleasant, no acute distress, loss of weight, answers questions appropriately - Head Head exam: Present: atraumatic, normocephalic - Eye Eye exam: Present: PERRL, conjuntiva pink, sclera anicteric Pupils: Present: PERRL - Neck Neck exam general surgery: Present: supple, trachea midline. Absent: lymphadenopathy - Respiratory Respiratory exam: Present: CTAB. Absent: accessory muscle use, rales, rhonchi, wheezes - Cardiovascular Cardiovascular exam: Present: RRR, +S1, +S2. Absent: diastolic murmur, gallop, rubs, systolic murmur - GI/Abdominal GI/Abdominal exam: Present: normal bowel sounds, soft, no peritoneal signs. Absent: distended, tenderness - Extremities Exam Extremities exam: Present: warm, radial pulses palpable and symmetrical. Absent : calf tenderness, cyanotic, pedal edema - Neurological Exam Neurological exam: Present: CN II-XII intact, oriented X3, no focal deficits. Absent: pronater drift, facial droop, speech deficit - Skin Skin exam: Present: dry, intact - Patient Status Disposition: Home, Self-Care Condition: Good Functional capacity at discharge: independent ambulation Overall status at discharge: patient is not back to baseline - Discharge Instructions Instructions: Acute Nausea and Vomiting (DC), Acute Abdominal Pain (DC) Follow Up With: Benjy Cowan MD [Primary Care Provider] - - Diet and Activity Activity: increase activity as tolerated Diet: advance to your usual diet
[2017-10-21] MEDS ORDERED: Clinimix E 5%-15% SOLUTION 2,000 ML with MVI, adult with vitamin K 10 ML, Trace Eleme... IVC SCH (17:00)
[2017-10-21] MEDS ORDERED: Pantoprazole 40 MG VIAL IVP SCH (18:00)
[2017-10-22] MEDS ORDERED: Clinimix E 5%-15% SOLUTION 2,000 ML with MVI, adult with vitamin K 10 ML, Trace Eleme... IVC SCH (17:00)
[2017-10-23] MEDS ORDERED: Clinimix E 5%-15% SOLUTION 2,000 ML with MVI, adult with vitamin K 10 ML, Trace Eleme... IVC SCH (17:00)
== END 2017-10-21 12:56 | disposition home or self-care (01) ==
LOC: EMEROO 10:56 → 3BNU 10:56
PROVIDERS: ADMIT General Practice; ATTEND General Practice
PROC: ENDOEBX (2017-10-21 08:30)